=== PATIENT | female | born 1970 | race Caucasian/White ===

== ENCOUNTER 2020-04-13 06:52 | Outpatient (NON) | payer BC, SELFPAY ==
[2020-04-13 19:02] LABS: SARS-CoV-2 RNA PCR Negative
== END 2020-04-13 06:53 ==
PROVIDERS: PCP Family Medicine; Visit Provider Family Medicine
DX: Z20.828 Contact with and (suspected) exposure to other viral communicable diseases (principal)
CPT/HCPCS: 87635; C9803; U0003

== ENCOUNTER → 2021-07-09 02:13 | Outpatient (CLI) | payer BC, SELFPAY ==
[2021-07-10 15:55] LABS: SARS-CoV-2 RNA PCR Positive
== END ==
PROVIDERS: PCP Family Medicine; Visit Provider Family Medicine
DX: U07.1 COVID-19 (principal)
CPT/HCPCS: C9803; U0003; U0005

== ENCOUNTER 2021-09-20 17:21 | Emergency (ER) | payer BC, SELFPAY ==
[2021-09-20] VITALS (10 sets, daily range): BP systolic 133–147; BP diastolic 73–96; PULSE 76–93; RESP 15–20; TEMP 36.7; O2SAT 97–100
--- NOTE | ~2021-09-20 | CT_ITS ---
EXAMINATION: CTA chest DATE: 09/20/2021 20:27 INDICATION: Sudden chest, neck, jaw and right arm pain. TECHNIQUE: Computed tomography angiography (CTA) of the chest was performed with 100 mL Omnipaque-350 intravenous contrast timed to evaluate the pulmonary arteries. Coronal maximum intensity projection 3D-reconstructions were created by the technologist. Automated exposure control and iterative reconst ruction technique were employed. Exam dose: 921.05 mGy-cm total exam DLP. COMPARISON: 09/11/2021 PA and lateral chest FINDINGS: There is no evidence of thoracic aortic aneurysm or dissection. There is no evidence of pulmonary embolism. No hilar or mediastinal mass lesion or lymphadenopathy. Normal heart size. No pericardial or pleural effusion. No pulmonary infiltrate or consolidation or pulmonary mass lesion is detected. Normal morphology of the adrenal glands. Status post cholecystectomy. Status post lower anterior cervical spine surgical fusion. No suspicious osteolytic or osteoblastic lesions. IMPRESSION: Evidence of thoracic aortic aneurysm or dissection or pulmonary embolism Reviewed, dictated and finalized at [facility] Reviewed, dictated and finalized at [facility]. IMPRESSION: Evidence of thoracic aortic aneurysm or dissection or pulmonary emb olism
--- NOTE | ~2021-09-20 | XR_ITS ---
XR chest 2V DATE: 09/20/2021 18:47 INDICATION: Chest pain and tightness. Right shoulder and neck pain. TECHNIQUE: PA and lateral views COMPARISON: 06/22/2018 PA and lateral chest FINDINGS: Normal heart size. No hilar or mediastinal enlargement. No pulmonary infiltrate or consolidation, pleural effusion or pulmonary vascular congestion or pneumo thorax. Status post lower anterior cervical spine surgical fusion. Status post cholecystectomy. IMPRESSION: No active cardiopulmonary disease Reviewed, dictated and finalized at [facility].
--- NOTE | 2021-09-20 18:28 | ECG_ITS ---
Measurements Intervals [place] Rate: 85 P: 37 DC: 166 QRS: -21 QRSD: 90 T: 63 QT: 390 QTc: 466 Interpretive Statements SINUS RHYTHM BORDERLINE LEFT AXIS DEVIATION MINIMAL VOLTAGE CRITERIA FOR LVH, CONSIDER NORMAL VARIANT Electronically Signed On 09-20-2021 18:46:54 CDT by Yomi Allen M.D.
--- NOTE | 2021-09-20 18:28 | ED.GENADULT ---
HPI - General Adult General Chief complaint: Chest Pain <VIKY Zambrano Last Filed: 09/21/21 04:05> Stated complaint: right shoulder pain <VIKY Zambrano Last Filed: 09/21/21 04:05> Time Seen by Provider: 09/20/21 17:52 <VIKY Zambrano Last Filed: 09/21/21 04:05> Source: patient <VIKY Zambrano Last Filed: 09/21/21 04:05> Mode of arrival: ambulatory <VIKY Zambrano Last Filed: 09/21/21 04:05> Limitations: no limitations <VIKY Zambrano Last Filed: 09/21/21 04:05> History of Present Illness HPI narrative: Patient is 41-year-old female, with PMHx of obesity and HLD, who presents the ED with report of right shoulder pain. Patient reports she was sitting at her desk around 4:30 PM today when she suddenly developed pain and tightness in her right upper arm and shoulder. She states she feels like she has a blood pressure cuff tightening around her right upper arm. She has not taken anything for the pain. The pain radiates into her right-sided neck and right jaw. Patient has a history of anxiety attacks. She tried taking a Xanax when the pain first began, thinking she may be having a panic attack, but the pain has not been relieved. She notes her panic attacks do not usually present this way, however. She also reports having nausea and shortness of breath. No significant chest pain. No pain with movement of her RUE, palpitations, back pain, BLE pain or edema, pain with inspiration, vomiting, abdominal pain, cough, congestion, fevers, chills, numbness/tingling. Denies any trauma or injury to right shoulder/arm. <VIKY Zambrano Last Filed: 09/21/21 04:05> Related Data Allergies/adverse reactions: Allergies Allergy/AdvReac Type Severity Reaction Status Date / Time No Known Allergies Allergy Verified 09/20/21 18:24 <VIKY Zambrano Last Filed: 09/21/21 04:05> Review of Systems Review of Systems: CONSTITUTIONAL: Denies fever, chills, or sweats. ENT: Denies congestion. CARDIOVASCULAR: Denies chest pain, palpitations, or BLE edema. RESPIRATORY: Reports shortness of breath. Denies cough, pain with inspiration. GASTROINTESTINAL: Reports nausea. Denies abdominal pain, vomiting, or diarrhea. MUSCULOSKELETAL: Reports pain in right arm/shoulder, radiating into right neck and jaw. Denies pain with movement of right upper extremity, back pain, BLE pain, or myalgia. NEUROLOGIC: Denies headache, numbness/tingling, or weakness. <Elisa Lopez PA-C - Last Filed: 09/21/21 04:05> All systems reviewed & are unremarkable except as noted in HPI and below <Elisa Lopez PA-C - Last Filed: 09/21/21 04:05> [facility] Past Medical History Medical History: Medical History Abnormal fasting glucose (05/18/21) Fasting glucose elevated at 128 on 05/18/2021 Acute non-recurrent maxillary sinusitis Breast cancer screening by mammogram Chronic anxiety Chronic depression COVID-19 (07/05/21) test positive 07/09/2021 Encounter for wellness examination in adult Exposure to COVID-19 virus Insomnia Microscopic hematuria (05/18/21) urinalysis with 3+ blood on 05/18/2021 Migraine without aura and without status migrainosus, not intractable Mixed hyperlipidemia (05/18/21) total cholesterol 212, triglycerides 174, HDL 40, LDL 141 on 05/18/2021 Morbid obesity with BMI of 50.0-59.9, adult UTI (urinary tract infection) <Elisa Lopez PA-C - Last Filed: 09/21/21 04:05> Surgical History Surgical History: Surgical History History of cholecystectomy Previous back surgery <Elisa Lopez PA-C - Last Filed: 09/21/21 04:05> Family History Family History: Family History (Updated 02/19/14 @ 07:13 by DOCTOR UNKNOWN) Sibling Family history of multiple sclerosis Father Family history of dementia <Elisa Lopez PA-C - Last Fi
[2021-09-20] MEDS: ONDANSETRON INJ 4 MG/2 ML VIAL IV PUSH (19:19)
[2021-09-20 19:27] LABS: Basophils Absolute Auto 0.1 K/mm3 (0.0-0.1); Basophils Percent Auto 0.9 % (0.2-1.2); Eosinophils Absolute Auto 0.1 K/mm3 (0-0.3); Eosinophils Percent Auto 1.9 % (0-4.4); Hematocrit 44.3 % (37.0-47.0); Hemoglobin 14.5 g/dL (12.0-15.0); Immature Granulocyte Absolute 0.01 K/mm3 (0.00-0.031); Immature Granulocyte Percent A 0.1 % (0-0.5); Lymphocytes Absolute Auto 2.71 K/mm3 (0.9-3.2); Lymphocytes Percent Auto 40.3 % (18.3-44.2); Mean Corpuscular HGB Conc 32.7 g/dl (32-36); Mean Corpuscular Hemoglobin 32.1 pg (26-34); Mean Platelet Volume 8.3 fl (7.4-10.4); Monocytes Absolute Auto 0.4 K/mm3 (0.1-0.6); Monocytes Percent Auto 6.2 % (2.6-8.5); Neutrophils Absolute Auto 3.4 K/mm3 (1.3-6.7); Neutrophils Percent Auto 50.6 % (45.5-73.1); Platelet Count Result 265 k/mm3 (150-375); Red Blood Count 4.52 M/mm3 (4.2-5.4); Red Cell Distribution Width 12.9 % (11.5-14.5); White Blood Count 6.7 K/mm3 (4.5-10.0)
[2021-09-20 19:36] LABS: Lipase 59 U/L (23-300)
[2021-09-20 19:37] LABS: INR 0.9; Prothrombin Time 11.8 Seconds (11.1-14.7)
[2021-09-20 19:38] LABS: Partial Thromboplastin Time 26.8 SECONDS (22.3-36.8)
[2021-09-20 19:46] LABS: Alanine Aminotransferase 22 U/L (4-35); Albumin Level 4.9 g/dL (3.5-5.1); Alkaline Phosphatase 93 U/L (38-126); Anion Gap 11 mmol/L (8-16); Aspartate Amino Transferase 31 U/L (14-36); Blood Urea Nitrogen 11 mg/dL (7-17); Calcium 9.4 mg/dL (8.4-10.2); Carbon Dioxide 26 mmol/L (22-30); Chloride 101 mmol/L (98-107); Estimated CRCL calculation 153 ml/min; Estimated Glomerular Filt Rate > 60; Glucose 115 mg/dL (65-110); Potassium 4.1 mmol/L (3.4-5.0); Sodium 138 mmol/L (137-145)
[2021-09-20 19:48] LABS: Troponin I < 0.012 ng/mL (0.000-0.034)
[2021-09-20] MEDS: MORPHINE SULFATE (*CRX) 4 MG/ML INJ IV PUSH (20:49)
[2021-09-20 21:53] LABS: Troponin I < 0.012 ng/mL (0.000-0.034)
--- NOTE | 2021-09-20 22:00 | ECG_ITS ---
Measurements Intervals [place] Rate: 81 P: 34 ME: 142 QRS: -3 QRSD: 89 T: 63 QT: 384 QTc: 447 Interpretive Statements SINUS RHYTHM BORDERLINE VOLTAGE CRITERIA FOR LVH, CONSIDER NORMAL VARIANT BASELINE ARTIFACT BORDERLINE ECG COMPARED TO ECG 09/20/2021 18:40:36 NO SIGNIFICANT CHANGE Electronically Signed On 09-21-2021 13:39:03 CDT by Kalen Arguelles M.D.
[2021-09-20 22:05] LABS: Appearance Urine Clear (Clear); Bilirubin Urine 1+ (Negative); Color Urine Yellow (Yellow); Glucose Urine UA Negative (Negative); Ketones Urine Negative (Negative); Leukocyte Esterase Ur Trace LEU/UL (Negative); Nitrate Urine Negative (Negative); Protein Urine Negative (Negative); Specific Grav Ur >= 1.030 (1.001-1.035); Urobilinogen Urine 0.2 mg/dL (<2.0); pH Urine 5.5 (5.0-9.0)
[2021-09-20 22:16] LABS: Add Urine Microscopic? YES; Blood Urine Trace (Negative)
[2021-09-20 22:32] LABS: Bacteria Urine Trace /hpf; Mucus Urine Rare /lpf; RBC Urine 0-2 /hpf (0-2); Squamous Epithelial Cell Urine Many /hpf (Few)
[2021-09-20] MEDS: LIDOCAINE HCL 2% VISC SOLN 15 ML UDC 20 ML PO (22:57)
[2021-09-20] MEDS: MAG HYDROX/AL HYDROX/SIMETH 30 ML UDC PO (22:57)
[2021-09-21 00:07] VITALS: BP 136/82; PULSE 72; RESP 16; O2SAT 98
== END 2021-09-21 00:11 | disposition home or self-care (01) ==
PROVIDERS: Physician Assistant; Emergency Provider Emergency Medicine; PCP Family Medicine
DX: R07.89 Other chest pain (principal); F41.9 Anxiety disorder, unspecified; Z86.16 Personal history of COVID-19; E78.2 Mixed hyperlipidemia; F32.A Depression, unspecified; E66.01 Morbid (severe) obesity due to excess calories; Z68.43 Body mass index [BMI] 50.0-59.9, adult; Z87.440 Personal history of urinary (tract) infections; R94.31 Abnormal electrocardiogram [ECG] [EKG]
CPT/HCPCS: 36415; 71046; 71275; 80053; 81001; 83690; 84484; 85025; 85610; 85730; 87086; 87088; 93005; 96374; 96375; 99284; A9270; J2270; J2405; Q9967

== ENCOUNTER → 2022-09-04 10:44 | Outpatient (CLI) | payer BC, SELFPAY ==
--- NOTE | ~2022-09-04 | XR_ITS ---
Left Shoulder Technique: AP and axillary views were obtained. Clinical History: Pain Findings: No fracture or dislocation is seen. Osseous alignment is anatomic. There is mild AC joint d egenerative change. Glenohumeral joint is intact. Soft tissues are unremarkable. Impression: Mild AC joint degenerative change. Reviewed, dictated and finalized at [facility]. Impression: Mild AC joint degenerative change.
== END ==
LOC: EXPTRAD 10:46
PROVIDERS: PCP Family Medicine; Visit Provider Family Medicine
DX: G89.29 Other chronic pain (principal); M25.512 Pain in left shoulder
CPT/HCPCS: 73030

== ENCOUNTER 2024-05-29 07:55 | Emergency (ER) | payer BC, SELFPAY ==
[2024-05-29] VITALS (12 sets, daily range): BP systolic 116–139; BP diastolic 76–85; PULSE 70–99; RESP 12–24; TEMP 36.5; O2SAT 93–100
--- NOTE | ~2024-05-29 | XR_ITS ---
EXAMINATION: XR chest 2V DATE: 05/29/2024 09:00 INDICATION: Shortness of breath. Cough. TECHNIQUE: Frontal and lateral views of the chest were obtained. COMPARISON: Chest 2 views 09/20/2021, chest CT 09/20/2021 FINDINGS: Again seen is mild elevation of right hemidiaphragm. There is no pneumonia, pleural effusio n, or pneumothorax. The heart size is normal. There are changes of anterior fusion procedure in cervi evens spine. Surgical clips in the right upper quadrant are likely from cholecystectomy. IMPRESSION: 1. No acute cardiopulmonary disease. Reviewed, dictated and finalized at [facility] [employer]
--- NOTE | 2024-05-29 07:57 | ECG_ITS ---
Test Date: 2024-05-29 08:04:28 Measurements Intervals [place] Rate: 86 P: 50 NH: 161 QRS: -6 QRSD: 78 T: 57 QT: 360 QTc: 432 Interpretive Statements SINUS RHYTHM VOLTAGE CRITERIA FOR LVH [MEETS CRITERIA IN ONE OF: R(aVL), S(V1), R(V5), R(V5/V6)+S(V1)] MODERATE T-WAVE ABNORMALITY, CONSIDER LATERAL ISCHEMIA [-0.1+ mV T WAVE IN I/aVL/V5/V6] No previous ECG available for comparison Electronically Signed On 05-29-2024 09:55:59 [employer]GER [employer] by Parish Edmondson M.D.
[2024-05-29 08:09] LABS: Basophils Absolute Auto 0.1 K/mm3 (0.0-0.1); Basophils Percent Auto 0.7 % (0.2-1.2); Eosinophils Absolute Auto 0.3 K/mm3 (0-0.3); Eosinophils Percent Auto 3.7 % (0-4.4); Hematocrit 41.9 % (37.0-47.0); Hemoglobin 13.7 g/dL (12.0-15.0); Immature Granulocyte Absolute 0.04 K/mm3 (0.00-0.031); Immature Granulocyte Percent A 0.6 % (0-0.5); Lymphocytes Absolute Auto 2.16 K/mm3 (0.9-3.2); Lymphocytes Percent Auto 30.9 % (18.3-44.2); Mean Corpuscular HGB Conc 32.7 g/dl (32-36); Mean Corpuscular Hemoglobin 32.1 pg (26-34); Mean Corpuscular Volume 98.1 fl (80-100); Mean Platelet Volume 8.3 fl (7.4-10.4); Monocytes Absolute Auto 0.5 K/mm3 (0.1-0.6); Monocytes Percent Auto 7.6 % (2.6-8.5); Neutrophils Percent Auto 56.5 % (45.5-73.1); Platelet Count Result 282 k/mm3 (150-375); Red Blood Count 4.27 M/mm3 (4.2-5.4); Red Cell Distribution Width 12.4 % (11.5-14.5)
[2024-05-29 08:32] LABS: Alanine Aminotransferase 22 U/L (6-35); Albumin Level 4.4 g/dL (3.5-5.1); Alkaline Phosphatase 87 U/L (38-126); Anion Gap 6 mmol/L (4-12); Aspartate Amino Transferase 27 U/L (14-36); Bilirubin,Total 0.9 mg/dL (0.2-1.3); Blood Urea Nitrogen 13 mg/dL (7-17); Calcium 9.5 mg/dL (8.4-10.2); Carbon Dioxide 30 mmol/L (22-30); Chloride 105 mmol/L (98-107); Estimated CRCL calculation 120 ml/min; Estimated Glomerular Filt Rate > 60; Glucose 160 mg/dL (65-110); Potassium 4.2 mmol/L (3.4-5.0); Sodium 141 mmol/L (137-145)
--- NOTE | 2024-05-29 09:23 | ED.GENADULT ---
HPI - General Adult General Chief complaint: Shortness of Breath/Dyspnea Stated complaint: SOB Time Seen by Provider: 05/29/24 08:13 History of Present Illness HPI narrative: 53-year-old female presenting to the emergency department for evaluation for increased shortness of breath. Patient feels her upper airway tightness up after coughing. Patient states this then causes an anxiety attack which causes further airway difficulty. At time of evaluation patient is not coughing and is saturating well on room air and is in no distress. Patient reports that last week she was treated with a course of cefdinir for respiratory symptoms but states that nothing is changed. Patient did take her last antibiotic yesterday. Related Data Home Medications Medication Instructions Recorded Confirmed cyanocobalamin (vitamin B-12) 1,000 mcg PO DAILY 04/22/24 04/22/24 1,000 mcg tablet Allergies Allergy/AdvReac Type Severity Reaction Status Date / Time No Known Allergies Allergy Verified 05/29/24 08:04 Review of Systems Review of Systems: All systems reviewed & are unremarkable except as noted in HPI and below PMFSH Past Medical History Medical History (Updated 05/29/24 @ 10:56 by Jeffrey Cruz MD) Abnormal fasting glucose (05/18/21) Fasting glucose elevated at 128 on 05/18/2021 Acute bronchitis Acute non-recurrent maxillary sinusitis Breast cancer screening by mammogram Cellulitis (11/11/22) right lower abdomen after spider bite Chronic anxiety Chronic depression Chronic pain in left shoulder (~05/2022) X-ray of the left shoulder on 09/04/2022 revealed mild degenerative changes of the AC joint. Controlled diabetes mellitus (02/09/22) fasting glucose 145 with hemoglobin A1c 5.8 on 02/09/2022. Glucose 130 with hemoglobin A1c 5.7 on 08/09/2022. Glucose 116 with hemoglobin A1c 5.4 With microalbumin ratio of 6 on 03/09/2023. Glucose 125 with hemoglobin A1c 5.5 on 08/30/2023. Glucose 119 with hemoglobin A1c 6.1, GFR 108, urine microalbumin ratio 0.4 on 02/19/2024. COVID-19 (07/05/21) test positive 07/09/2021 Encounter for wellness examination in adult Exposure to COVID-19 virus Folic acid deficiency level low at 3.5 on 08/09/2022. Level normal at 21 with hemoglobin 12.6 on 03/09/2023. Normal at 24 with hemoglobin 13.4 on 08/30/2023. Insomnia Microscopic hematuria (05/18/21) urinalysis with 3+ blood on 05/18/2021. no blood on urinalysis 03/09/2023. Migraine without aura and without status migrainosus, not intractable Mixed hyperlipidemia (05/18/21) total cholesterol 212, triglycerides 174, HDL 40, LDL 141 on 05/18/2021. Total cholesterol 239, triglycerides 126, HDL 52, LDL 163 02/09/2022. Cholesterol 236, triglycerides 124, HDL 48, LDL 163 with ratio 4.9 on 08/09/2022. Cholesterol 162, triglycerides 118, HDL 47, LDL 94 with ratio 3.4 on 03/09/2023. Cholesterol 157, triglycerides 107, HDL 52, LDL 85 with ratio 3.0 on 08/30/2023. Cholesterol 151, triglycerides 101, HDL 53, LDL 80 with ratio 2.8 on 02/19/2024. Morbid obesity with BMI of 45.0-49.9, adult Morbid obesity with BMI of 50.0-59.9, adult Myofascial pain syndrome, cervical (09/20/21) right posterior shoulder, trapezius with referred pain to right upper extremity Nausea Right shoulder pain Toxic effect of venom of brown recluse spider (11/11/22) Urinary frequency UTI (urinary tract infection) Vitamin B12 deficiency (~08/09/22) level low at 324 with goal greater than 400 on 08/09/2022. Level low at 312 with goal greater than 400 with hemoglobin 12.6 on 03/09/2023. Level low at 303 with hemoglobin 13.4 on 08/30/2023. Level low at 329 on 02/19/2024. Surgical History Surgical History History of cholecystectomy Previous back surgery Family History Family History (Updated 02/19/14 @ 07:13 by DOCTOR UNKNOWN) Sibling Family history of multiple sclerosis Father Family history of dementia Social History Social History Smoking status: Never smoker Alcohol intake: never Substance use: never Substance use type: does not use Lack of Transportation: No Lack of Food: Never True Current Housing: I Have Housing Concerned About Future Housing: No Difficulty Paying Gas/Electric Bills: No Difficulty Paying for Meds: No Currently Unemployed: No Education: High School Diploma/GED Difficulty w/ Childcare or Family Care: No Exam Narrative: APPEARANCE: Well appearing, no pain, no distress, well-nourished. HEAD: normocephalic, atraumatic. EYES: PERRLA/EOMI, conjunctivae clear. NOSE: Normal no drainage EARS:TMS clear with good light reflex. THROAT: Pharynx clear, no exudate. NECK: Supple. No adenopathy, no masses. RESPIRATORY: Wheezing in lower lungs bilaterally CARDIOVASCULAR: Regular rate and rhythm without murmurs rubs or gallops. ABDOMINAL: Soft, nontender, nondistended, normal bowel sounds MUSCULOSKELETAL: Moves all extremities. Strength/ROM intact, No edema, No calf tenderness. NEURO: Alert. Cranial nerves II through XII intact. Grossly intact SKIN: Warm, dry. Normal Color Course Vital Signs Vital signs: Vital Signs Pulse Oximetry 98 05/29/24 07:57 Oxygen Delivery Room Air 05/29/24 07:57 Temperature 97.7 F 05/29/24 07:59 Pulse Rate 99 05/29/24 10:30 Respiratory Rate 12 05/29/24 10:30 Blood Pressure 139/79 05/29/24 10:30 Pulse Oximetry 96 05/29/24 10:30 Oxygen Delivery Room Air 05/29/24 09:35 Medical Decision Making MDM Narrative Medical decision making narrative: 53-year-old female present to the emergency department for evaluation for shortness of breath. Chest x-ray shows no acute cardiopulmonary disease. Patient does have some wheezing on exam that was resolved with albuterol. Patient states she does not feel that her shortness of breath in her chest but is in her upper airway. Patient has no stridor and a normal exam. Patient does describe cough and bronchospasm. Patient will be provided Tylenol 3 for cough suppressant along with albuterol inhaler and spacer. Patient was comfortable the plan for discharge and close follow-up. Differential Diagnosis Differential Diagnosis: Pneumonia, bronchospasm, stridor Medical Records Medical records reviewed: Yes I reviewed the external patient's medical records. Vital Signs Vital Signs: Vital Signs Pulse Oximetry 98 05/29/24 07:57 Oxygen Delivery Room Air 05/29/24 07:57 Temperature 97.7 F 05/29/24 07:59 Pulse Rate 99 05/29/24 10:30 Respiratory Rate 12 05/29/24 10:30 Blood Pressure 139/79 05/29/24 10:30 Pulse Oximetry 96 05/29/24 10:30 Oxygen Delivery Room Air 05/29/24 09:35 Lab Data Lab results reviewed: Yes I reviewed the patient's lab results. 05/29/24 08:02 05/29/24 08:02 Labs: Lab Results 05/29/24 Range/Units 08:02 WBC 7.0 (4.5-10.0) K/mm3 RBC 4.27 (4.2-5.4) M/mm3 Hgb 13.7 (12.0-15.0) g/dL Hct 41.9 (37.0-47.0) % MCV 98.1 (80-100) fl MCH 32.1 (26-34) pg MCHC 32.7 (32-36) g/dl RDW 12.4 (11.5-14.5) % Plt Count 282 (150-375) k/mm3 MPV 8.3 (7.4-10.4) fl Immature Gran % (Auto) 0.6 H (0-0.5) % Neut % (Auto) 56.5 (45.5-73.1) % Lymph % (Auto) 30.9 (18.3-44.2) % [place] % (Auto) 7.6 (2.6-8.5) % Eos % (Auto) 3.7 (0-4.4) % Baso % (Auto) 0.7 (0.2-1.2) % Lymph # (Auto) 2.16 (0.9-3.2) K/mm3 [place] # (Auto) 0.5 (0.1-0.6) K/mm3 Eos # (Auto) 0.3 (0-0.3) K/mm3 Baso # (Auto) 0.1 (0.0-0.1) K/mm3 Abs Immat Gran (auto) 0.04 H (0.00-0.031) K/mm3 Absolute Neuts (auto) 4.0 (1.3-6.7) K/mm3 Absolute Nucleated RBC 0.000 (0.0-0.012) K/mm3 Nucleated RBC % 0.0 (0.0-0.2) % Sodium 141 (137-145) mmol/L Potassium 4.2 (3.4-5.0) mmol/L Chloride 105 (98-107) mmol/L Carbon Dioxide 30 (22-30) mmol/L Anion Gap 6 (4-12) mmol/L BUN 13 (7-17) mg/dL Creatinine 0.60 L (0.7-1.0) mg/dL Estim Creat Clear Calc 120 ml/min Estimated GFR > 60 (59 - ) Glucose 160 H (65-110) mg/dL Calcium 9.5 (8.4-10.2) mg/dL Total Bilirubin 0.9 (0.2-1.3) mg/dL AST 27 (14-36) U/L ALT 22 (6-35) U/L Alkaline Phosphatase 87 (38-126) U/L Total Protein 8.0 (6.3-8.2) g/dL Albumin 4.4 (3.5-5.1) g/dL Imaging Data Radiologist's impression: Impressions Chest X-Ray 05/29/24 09:06 IMPRESSION: 1. No acute cardiopulmonary disease. Discharge Plan Discharge Clinical Impression: Shortness of breath, Acute bronchospasm Patient Disposition: Home, Self-Care Condition: Stable Instructions: Antibiotic Form, Bronchospasm (ED) Additional Instructions: Albuterol inhaler with spacer. Tylenol 3 for cough suppression. Have close follow-up with your primary care physician. If you have any worsening symptoms then please call or return to the emergency department. Prescriptions: New albuterol sulfate 90 mcg/actuation HFA aerosol inhaler 1 inh inhalation QID PRN (Reason: shortness of breath or wheezing) Qty: 6.7 0RF acetaminophen-codeine 300-30 mg tablet 1 tablet PO Q12H PRN (Reason: cough) Qty: 14 0RF No Action cyanocobalamin (vitamin B-12) 1,000 mcg tablet 1,000 mcg PO DAILY atorvastatin 20 mg tablet 20 mg PO QHS Qty: 90 3RF folic acid 1 mg tablet 1 mg PO DAILY Qty: 90 3RF meloxicam 15 mg tablet 15 mg PO DAILY PRN (Reason: pain) Qty: 90 3RF metformin 500 mg tablet 2,000 mg PO . with supper Qty: 120 11RF alprazolam 0.5 mg tablet 0.5 mg PO TID PRN (Reason: anxiety) Qty: 60 5RF Rx Instructions: the patient may take 1/2 or 1 tablet up to 3 times daily zolpidem [Ambien] 10 mg tablet 10 mg PO . q.h.s. PRN (Reason: insomnia) Qty: 30 5RF cefdinir 300 mg capsule 300 mg PO Q12H Qty: 20 0RF benzonatate 100 mg capsule 100 mg PO TID PRN (Reason: cough) Qty: 30 0RF Follow-up/Referrals: Quentin Richardson MD [Primary Care Provider] -
[2024-05-29] MEDS: ALBUTEROL SULFATE NEB 2.5 MG/3 ML INH 5 MG INHALATION (09:35)
[2024-05-29] MEDS: ACETAMINOPHEN/CODEINE (*CRX) 300/30 MG TABLET 1 TAB PO (09:37)
== END 2024-05-29 11:04 | disposition home or self-care (01) ==
PROVIDERS: Emergency Provider Emergency Medicine; PCP Family Medicine
DX: J98.01 Acute bronchospasm (principal); F41.8 Other specified anxiety disorders; E11.9 Type 2 diabetes mellitus without complications; E78.2 Mixed hyperlipidemia; E53.8 Deficiency of other specified B group vitamins
CPT/HCPCS: 36415; 71046; 80053; 85025; 93005; 94640; 99284; A9270